=== PATIENT | male | born 1975 | race Caucasian/White ===

== ENCOUNTER 2022-04-09 10:57 | Outpatient (CLI) | payer OTHER, SELFPAY | END 2022-04-09 10:58 | disposition home or self-care (01) | LOC: OP CLINIC 10:58 | PROVIDERS: PCP Family Medicine; Visit Provider Internal Medicine | DX: Z12.11 Encounter for screening for malignant neoplasm of colon (principal); K57.30 Diverticulosis of large intestine without perforation or abscess without bleeding; Z86.010 Personal history of colon polyps | CPT/HCPCS: 45378; J2250; J3010 ==

== ENCOUNTER 2022-06-28 15:27 | Outpatient (CLI) | payer OTHER, SELFPAY ==
[2022-06-28 09:57] LABS: Albumin* 4.7 g/dL (3.3-5.0)
[2022-06-28 09:58] LABS: Chloride* 105 mmol/L (96-114); Potassium* 4.5 mmol/L (3.6-5.1); Sodium* 139 mmol/L (135-149)
[2022-06-28 10:00] LABS: Bilirubin Total* 0.6 mg/dL (0.1-1.5); Carbon Dioxide* 24 mmol/L (20-32); Cholesterol* 182 mg/dL (90-199); Creatinine* 1.4 mg/dL (0.5-1.5); Estimated Glomerular Filt Rate 63 ml/min; Total Protein* 7.1 g/dL (6.0-8.3)
[2022-06-28 10:01] LABS: Alanine Aminotransferase* 32 U/L (4-50); Alkaline Phosphatase* 73 U/L (40-150); Aspartate Amino Transferase* 33 U/L (12-35); Blood Urea Nitrogen* 28 mg/dL (5-24); Calcium* 10.1 mg/dL (8.4-10.6); Glucose* 103 mg/dL (60-115); HDL Cholesterol* 38 mg/dL (>=40); LDL Cholesterol Calculated 122 mg/dL (<100); Triglycerides* 112 mg/dL (40-149)
[2022-06-28 10:29] LABS: PSA Screen* 0.92 ng/mL (0.10-4.00)
== END 2022-06-28 15:28 | disposition home or self-care (01) ==
PROVIDERS: PCP Family Medicine; Visit Provider Internal Medicine
DX: Z00.00 Encounter for general adult medical examination without abnormal findings (principal); E78.5 Hyperlipidemia, unspecified; R03.0 Elevated blood-pressure reading, without diagnosis of hypertension; Z12.5 Encounter for screening for malignant neoplasm of prostate
CPT/HCPCS: 80053; 80061; 84153

== ENCOUNTER 2022-07-01 08:40 | Outpatient (CLI) | payer OTHER, SELFPAY ==
[2022-07-01 12:22] LABS: Uric Acid* 9.5 mg/dL (2.2-8.4)
[2022-07-02 10:59] LABS: Rheumatoid Factor <10 IU/mL (0-14)
[2022-07-02 16:10] LABS: Anti-Nuclear Ab(ANA)IgG ELISA None Detected (None Detected)
== END 2022-07-01 08:41 | disposition home or self-care (01) ==
PROVIDERS: PCP Family Medicine; Visit Provider Internal Medicine
DX: M10.9 Gout, unspecified (principal); E78.5 Hyperlipidemia, unspecified; E66.9 Obesity, unspecified; R03.0 Elevated blood-pressure reading, without diagnosis of hypertension
CPT/HCPCS: 84550; 86039; 86200; 86431

== ENCOUNTER 2022-08-24 20:21 | Outpatient (CLI) | payer OTHER, SELFPAY ==
[2022-08-24 10:29] LABS: Albumin* 4.3 g/dL (3.3-5.0); Chloride* 107 mmol/L (96-114)
[2022-08-24 10:30] LABS: Potassium* 4.1 mmol/L (3.6-5.1); Sodium* 140 mmol/L (135-149)
[2022-08-24 10:32] LABS: Carbon Dioxide* 27 mmol/L (20-32); Creatinine* 1.2 mg/dL (0.5-1.5); Estimated Glomerular Filt Rate 76 ml/min
[2022-08-24 10:33] LABS: Alanine Aminotransferase* 27 U/L (4-50); Alkaline Phosphatase* 79 U/L (40-150); Aspartate Amino Transferase* 20 U/L (12-35); Blood Urea Nitrogen* 25 mg/dL (5-24); Calcium* 9.6 mg/dL (8.4-10.6); Glucose* 77 mg/dL (60-115); Total Protein* 6.8 g/dL (6.0-8.3)
== END 2022-08-24 20:22 | disposition home or self-care (01) ==
PROVIDERS: PCP Family Medicine; Visit Provider Internal Medicine
DX: M10.9 Gout, unspecified (principal)
CPT/HCPCS: 80053